=== PATIENT | female | born 1965 | race Caucasian/White ===

== ENCOUNTER 2016-08-31 11:33 | Emergency (ER) | payer MEDICARE, SELFPAY ==
[~2016-08-31 11:33] MED LIST: ACTOS45 MG PO; AMBIZINE25 MG PO; BUSPIRONE HCL7.5 MG PO; DEPAKOTE250 MG PO; DIABETA5 MG PO; FISH OIL 1,0001 EACH PO; GABAPENTIN400 MG PO; GLUCOPHAGE500 MG PO; JANUVIA100 MG PO; LANTUS100 UNIT/1 SC; LASIX40 MG PO; LOFIBRA134 MG PO; MAALOX PLUS30 ML PO; NYSTOP60 GM TOP; PANTOPRAZOLE SO40 MG PO; POTASSIUM CHLO20 ME1 PO; SINGULAIR10 MG PO; SYNTHROID25 MCG PO; TRAZODONE HCL100 MG PO; ZOCOR40 MG PO; ZOLOFT100 MG PO
[2016-08-31 12:36] LABS: BASO # 0.1 10_X3_uL (0.0-0.1); BASO % 0.5 % (0.1-1.2); EOS # 0.1 10_X3_uL (0.0-0.4); EOS % 1.2 % (0.7-5.8); GRAN # 6.6 10_X3_uL (1.6-6.1); GRAN % 64.6 % (34.0-71.1); HEMATOCRIT 42.3 % (34-45); HEMOGLOBIN 15.4 g/dL (11.2-15.7); LYMPH # 2.7 10_X3_uL (1.2-3.7); MEAN CORPUSCULAR HEMOGLOBIN 29.3 pg (27.0-33.0); MEAN CORPUSCULAR HGB CONC 36.4 g/dL (32.0-36.0); MEAN CORPUSCULAR VOLUME 80.6 fL (79-95); MEAN PLATELET VOLUME 9.6 fl (7.5-11.5); MONO # 0.7 10_X3_uL (0.2-0.9); MONO % 6.7 % (4.7-12.5); PLATELET COUNT 212 x10_3/uL (182-369); RED BLOOD COUNT 5.25 x10_6/uL (3.9-5.2); RED CELL DISTRIBUTION WIDTH 13.6 % (11.7-14.4); WHITE BLOOD COUNT 10.2 x10_3/uL (4.0-10.0)
[2016-08-31 12:47] LABS: ALBUMIN 4.2 gm/dL (3.4-5.0); ALKALINE PHOSPHATASE 66 U/L (50-136); ALT/SGPT 11 U/L (3.5-33.9); AST/SGOT 16 U/L (7.04-26.96); BILIRUBIN,TOTAL 0.33 mg/dL (0.0-1.0); BLOOD UREA NITROGEN 7 mg/dL (7-18); CARBON DIOXIDE 22 mmol/L (21-32); CREATINE KINASE 31 U/L (21-215); CREATININE 0.6 mg/dL (0.6-1.3); GLUCOSE,RANDOM 363 mg/dL (70-99); SODIUM 134 mmol/L (136-145); TOTAL PROTEIN 7.7 gm/dL (6.4-8.2)
[2016-08-31 12:51] LABS: POTASSIUM 4.3 mmol/L (3.5-5.1)
== END 2016-08-31 14:53 | disposition home or self-care (01) ==
LOC: ER 11:33
PROVIDERS: Emergency Medicine
DX: F41.9 Anxiety disorder, unspecified (principal); F32.9 Major depressive disorder, single episode, unspecified; N64.4 Mastodynia; M53.3 Sacrococcygeal disorders, not elsewhere classified; E66.9 Obesity, unspecified; R11.2 Nausea with vomiting, unspecified; R19.7 Diarrhea, unspecified; R42 Dizziness and giddiness; I50.9 Heart failure, unspecified; E11.9 Type 2 diabetes mellitus without complications; Z90.710 Acquired absence of both cervix and uterus; Z88.1 Allergy status to other antibiotic agents; Z88.5 Allergy status to narcotic agent; Z79.899 Other long term (current) drug therapy; Z79.4 Long term (current) use of insulin
CPT/HCPCS: 36415; 71010; 80053; 82550; 82553; 82962; 85025; 93005; 99070; 99284; 99284-25

== ENCOUNTER 2016-10-26 12:03 | Emergency (ER) | payer MEDICARE, OTHER | END 2016-10-26 13:50 | disposition home or self-care (01) | LOC: ER 12:03 | DX: S83.91XA Sprain of unspecified site of right knee, initial encounter (principal); M25.561 Pain in right knee; M25.551 Pain in right hip; W19.XXXA Unspecified fall, initial encounter; E11.9 Type 2 diabetes mellitus without complications; Z90.710 Acquired absence of both cervix and uterus; F17.210 Nicotine dependence, cigarettes, uncomplicated; Z88.5 Allergy status to narcotic agent; Z79.899 Other long term (current) drug therapy; Z79.84 Long term (current) use of oral hypoglycemic drugs | CPT/HCPCS: 73552; 73564; 73590; 99070; 99283; 99283-25 ==